=== PATIENT | female | born 2000 | race American Indian/Alaskan Native ===

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

== ENCOUNTER 2021-05-05 22:57 | Emergency (ER) | payer MEDICAID ==
[2021-05-06 00:46] VITALS: BP 130/70
== END 2021-05-06 03:42 | disposition left against medical advice (07) ==
LOC: ED 22:57
DX: R10.9 Unspecified abdominal pain (principal); R51.9 Headache, unspecified; Z53.21 Procedure and treatment not carried out due to patient leaving prior to being seen by health care provider